=== PATIENT | female | born 1930 | race Caucasian/White ===

== ENCOUNTER 2016-10-11 14:09 | Emergency (ER) | payer MEDICARE, BC ==
--- NOTE | 2016-10-11 15:19 | EDM.PDOC ---
ED HPI GENERAL MEDICAL PROBLEM - General Chief Complaint: General Stated Complaint: left leg not working Time Seen by Provider: 10/11/16 14:53 Source of Information: Reports: Patient History Limitations: Reports: No Limitations - History of Present Illness INITIAL COMMENTS - FREE TEXT/NARRATIVE: Patient presents with left leg not doing what she wants it to do. This started 3 weeks ago when she was at an auction sale; she was walking around looking at the items on a wagon and her left foot wanted to turntable engineer rather than point straight ahead. This was significant enough that she went home from the auction early. No pain. Since then she has had several more episodes of the "left leg and foot not cooperating with her brain". They are fairly brief. This morning it seemed especially bothersome so she came in. She is concerned about a stroke. She has never had a stroke before. She denies any weakness of extremities except as described above. Denies facial droop, headache or vision changes. No dysuria but does say she gets UTIs fairly often. She saw PCP yesterday who felt it was not a stroke but she wants to know for sure. She is also supposed to start PT for this. - Related Data Allergies Allergy/AdvReac Type Severity Reaction Status Date / Time Penicillins Allergy Hives Verified 12/16/13 11:54 Sulfa (Sulfonamide Allergy Cannot Verified 12/16/13 11:54 Antibiotics) Remember tizanidine HCl Allergy Dizziness Verified 12/16/13 11:54 [From [facility]afele[facility]] Home Meds: Home Meds Aspirin [Halfprin] 81 [place] 89910/11/16 [History] Atenolol 25 [place] 89910/11/16 [History] Cholecalciferol (Vitamin D3) [Vitamin D3] 2,000 unit PO 89910/11/16 [History] Cinnamon Bark [Cinnamon] 1,000 mg PO 89910/11/16 [History] Clopidogrel [Plavix] 75 mg PO 179910/11/16 [History] Cranberry 400 [place] 89910/11/16 [History] Famotidine 20 mg PO 0900,179910/11/16 [History] L.acidoph,Paracasei, B.lactis [Probiotic] 1 each PO 89910/11/16 [History] Lisinopril 5 mg PO 179910/11/16 [History] Simvastatin [Zocor] 10 mg PO 179910/11/16 [History] glipiZIDE [Glipizide Xl] 10 mg PO 89910/11/16 [History] metFORMIN [Glucophage] 500 [place] 89910/11/16 [History] ED ROS GENERAL - Review of Systems Review Of Systems: See Below Constitutional: Denies: Fever, Chills, Weakness, Decreased Appetite HEENT: Denies: Throat Pain, Vision Change Respiratory: Denies: Shortness of Breath, Cough Cardiovascular: Reports: Lightheadedness (with walking). Denies: Chest Pain, Syncope GI/Abdominal: Reports: Constipation (chronic). Denies: Abdominal Pain, Diarrhea , Nausea, Vomiting : Reports: Incontinence (mild, chronic). Denies: Dysuria, Flank Pain Musculoskeletal: Denies: Neck Pain, Shoulder Pain, Arm Pain, Back Pain, Hand Pain, Leg Pain, Foot Pain Skin: Denies: Cyanosis, Jaundice, Mottled, Pallor, Diaphoresis Neurological: Denies: Confusion, Dizziness, Headache, Numbness (no numbness but left leg feels kind of "heavy" or "hollow"), Seizure, Syncope, Trouble Speaking Psychiatric: Denies: Agitation, Anxiety, Confusion ED EXAM, GENERAL - Physical Exam Exam: See Below Exam Limited By: No Limitations General Appearance: Alert, WD/WN, No Apparent Distress Eye Exam: Bilateral Eye: EOMI, Normal Inspection, PERRL Ears: Normal External Exam, Normal Canal, Hearing Grossly Normal, Normal TMs Nose: Normal Inspection, No Blood Throat/Mouth: Normal Inspection, Normal Lips, Normal Teeth, Normal Gums, Normal Oropharynx, Normal Voice, No Airway Compromise Head: Atraumatic, Normocephalic Neck: Normal Inspection, Supple, Non-Tender, Full Range of Motion. No: Carotid Bruit Respiratory/Chest: No Respiratory Distress, Lungs Clear, Normal Breath Sounds, No Accessory Muscle Use Cardiovascular: Regular Rate, Rhythm, No Edema, No Gallop, No Murmur GI/Abdominal: Normal Bowel Sounds, Soft, Non-Tender, No Organomegaly, No Distention Back Exam: No: CVA Tenderness (L), CVA Tenderness (R) Extremities: Normal Inspection, Normal Range of Motion, Non-Tender, No Pedal Edema, Other (5/5 strength against resistance, symmetric: leg raise, foot dorsiflexion/plantar flexion, arm extension, hand administrative assistant data entry) Neurological: Alert, Oriented, CN II-XII Intact, Normal Cognition, No Motor/ Sensory Deficits, Abnormal Gait (slow and deliberate but unassisted), Other ( Normal Romberg) Psychiatric: Normal Affect, Normal Mood Skin Exam: Warm, Dry, Intact, Normal Color, No Rash Course - Vital Signs Last Recorded V/S: Last Vital Signs Temp 96.7 F 10/11/16 14:52 Pulse 66 10/11/16 16:59 Resp 18 10/11/16 14:52 BP 183/65 H 10/11/16 16:59 Pulse Ox 98 10/11/16 16:26 - Orders/Labs/Meds Orders: Active Orders 24 hr Category Date Time Status Head wo Cont [CT] Stat Exams 10/11/16 15:10 Taken Labs: Laboratory Tests 10/11/16 10/11/16 10/11/16 Range/Units 15:12 15:50 15:50 WBC 7.5 (5.0-10.0) 10^3/uL RBC 4.98 (3.80-5.50) 10^6/uL Hgb 14.6 (12.0-16.0) g/dL Hct 42.9 (37.0-47.0) % MCV 86.3 (82.0-92.0) fL MCH 29.4 (27.0-31.0) pg MCHC 34.1 (32.0-36.0) g/dL RDW 12.9 (11.5-14.5) % Plt Count 147 L (150-300) 10^3/uL MPV 7.6 (7.4-10.4) fL Neut % (Auto) 66.4 (50.0-70.0) % Lymph % (Auto) 23.5 (20.0-40.0) % Ray % (Auto) 6.9 (2.0-8.0) % Eos % (Auto) 2.8 (1.0-3.0) % Baso % (Auto) 0.4 (0.0-1.0) % Neut # (Auto) 5.0 (2.5-7.0) 10^3/uL Lymph # (Auto) 1.8 (1.0-4.0) 10^3/uL Ray # (Auto) 0.5 (0.1-0.8) 10^3/uL Eos # (Auto) 0.2 (0.1-0.3) 10^3/uL Baso # (Auto) 0.0 (0.0-0.1) 10^3/uL Sodium 140 (136-145) mmol/L Potassium 4.4 (3.3-5.3) mmol/L Chloride 104 (98-115) mmol/L Carbon Dioxide 26.4 (21.0-32.0) mmol/L BUN 21 (6-25) mg/dL Creatinine 1.07 (0.51-1.17) mg/dL Est Cr Clr Drug Dosing 30.06 mL/min Estimated GFR (MDRD) 48 mL/min Glucose 158 H (70-110) mg/dL Calcium 9.1 (8.7-10.3) mg/dL Specimen Type Urincc Urine Color Yellow (YELLOW) Urine Appearance Clear (CLEAR) Urine pH 6.0 (5.0-9.0) Ur Specific [place] 1.010 (1.005-1.030) Urine Protein Negative (NEGATIVE) mg/dL Urine Glucose (UA) Negative (NEGATIVE) mg/dL Urine Ketones Negative (NEGATIVE) mg/dL Urine Occult Blood Negative (NEGATIVE) Urine Nitrite Negative (NEGATIVE) Urine Bilirubin Negative (NEGATIVE) Urine Urobilinogen 0.2 (0.2-1.0) E.U./dL Ur Leukocyte Esterase Negative (NEGATIVE) Urine RBC 0-5 /HPF Urine WBC 0-5 /HPF Ur Epithelial Cells Moderate H /LPF Urine Bacteria Occasional (NONE TO FEW) /HPF Meds: Medications Discontinued Medications Generic Name Dose Route Start Last Admin Trade Name Freq PRN Reason Stop Dose Admin Labetalol HCl 20 mg 10/11/16 15:30 10/11/16 16:05 Normodyne IVPUSH 10/11/16 15:31 20 mg ONETIME ONE Administration Protocol - Re-Assessments/Exams Free Text/Narrative Re-Assessment/Exam: 10/11/16 17:[address] all normal. NIH stroke scale normal. Discussed findings and treatment plan with patient and her . I see no evidence of a stroke and feel physical therapy will provide improvement for her. If not she should follow up with an orthopedic doctor which can be here in [place] with Dr. Saini or in [facility]. Her blood pressure was quite elevated in ER and responded nicely to a dose of Labetolol. I advised patient to follow up with her PCP next week to re-evaluate blood pressure regimen. Pt discharged in stable condition. Departure - Departure Time of Disposition: 17:04 Disposition: Home, Self-Care 01 Condition: Good Clinical Impression: Left leg weakness - Discharge Information Referrals: PCP,None [Primary Care Provider] - Forms: ED Department Discharge Additional Instructions: 1. Start Physical Therapy as ordered by your PCP. 2. Take care to avoid falling by using assistance with walking if needed. 3. Follow up with orthopedics if therapy is not helping. 4. Follow up with your PCP next week for evaluation of your blood pressure medications. - My Orders Last 24 Hours: My Active Orders 10/11/16 15:10 Head wo Cont [CT] Stat - Assessment/Plan Last 24 Hours: My Active Orders 10/11/16 15:10 Head wo Cont [CT] Stat
[2016-10-11] MEDS ORDERED: Labetalol 100 MG/20 ML MDV IVPUSH ONE (15:30)
[2016-10-11 17:00] VITALS: BP 183/65
== END 2016-10-11 17:46 | disposition home or self-care (01) ==
LOC: KA.ED 14:09
DX: R53.1 Weakness (principal); Z79.82 Long term (current) use of aspirin; Z79.84 Long term (current) use of oral hypoglycemic drugs; Z88.0 Allergy status to penicillin; Z88.2 Allergy status to sulfonamides; Z88.8 Allergy status to other drugs, medicaments and biological substances
CPT/HCPCS: 36415; 70450; 80048; 81001; 85025; 96374; 99283; 99285